=== PATIENT | male | born 2000 | race Two or more races ===

== ENCOUNTER 2024-08-26 21:16 | Emergency (ER) | payer MEDICAID, SELFPAY ==
[2024-08-26 22:40] VITALS: BP 106/60; PULSE 67; RESP 18; TEMP 36.9; O2SAT 100
--- NOTE | 2024-08-26 22:41 | EDNOTE_ITS ---
ED Skin Abcess FB-RME/HPI General Chief complaint: Skin/Abscess/Foreign Body Stated complaint: INSECT BITE TO LEFT LOWER LEG Time Seen by Provider: 08/26/24 22:03 Arrival date/time: 08/26/24 21:16 24 year old male present to emergency room with c/o of lower leg insect bite for 3 days. unsure of tetanus status LOCATION:leg SEVERITY: Symptoms are described as being severe with limitations on activities of daily living QUALITY: Symptoms are described as being dull or achy CONTEXT: The patient is unable to identify any inciting events. DURATION/TIMING: The symptoms started approximately one day ago and have been constant this then, and have been progressive getting worse. ASSOCIATED SYMPTOMS: The patient is unable to identify any other associated symptoms. MODIFYING FACTORS: The patient is unable to identify any alleviating or aggravating symptoms. PERTINENT ROS: denies IVDU, states no immunocompromising condition, denies any penetrating trauma, no fever, no unexplained nausea or vomiting, no headache, no chest pain REVIEW OF SYSTEMS: See History of Present Illness - with the exception of those mentioned in the history of present illness, all other systems reviewed and reported as negative GENERAL: In general the patient is awake, interactive, in an emergency department gurney. HEAD/EYES/EARS/NOSE/THROAT: normo-cephalic, atraumatic, mucus membranes are moist, anicteric, palpebral conjunctiva is pink, trachea is midline. BACK: normal range of motion without pain. NEUROLOGICAL: cranio-facial features are symmetric, moves all four extremities equally without obvious limitations or weakness. EXTREMITY: Left lower + localized infect insect bite. + TTP no red streaking or discharge no tenderness to palpation over the long bones or large joints of the bilateral upper extremities, no joint swelling, no joint erythema, and no peripheral edema. SKIN: warm, dry, well-perfused, no jaundice, no rash, no telangiectasias or petechia. PSYCH: calm, cooperative, no evidence of psychosis or agitation Related Data Previous Rx's ?Medication ?Instructions ?Recorded doxycycline hyclate 100 mg tablet 100 mg PO BID #20 ta bs 08/26/24 Allergies Allergy/AdvReac Type Severity Reaction Status Date / Time No Known Allergies Allergy Verified 08/26/24 21:18 Course Course Course Narrative: Patient is admitted to the Emergency Department and evaluated. Patient appears well, is non-toxic and well hydrated. Pt appears to have an early abscess that is indurated. Pt is given instructions to use warm compresses. Will initiate outpatient abx. Instructed to return in 2 days for recheck. Quality Measures none Orders Category Date Time Status Doxycycline [Vibramycin] Med 08/26/24 22:40 Once 100 mg PO X1 ONE Tetanus, Diphtheria Toxoids/Pf [Tenivac-Adult] Med 08/26/24 22:40 Once 0.5 ml IMI .ONCE ONE Vital Signs Vital signs: Vital Signs Temperature 98.5 F 08/26/24 22:40 Pulse Rate 67 08/26/24 22:40 Respiratory Rate 18 08/26/24 22:40 Blood Pressure 106/60 08/26/24 22:40 Pulse Oximetry (%) 100 08/26/24 22:40 Skin / Abscess / Foreign Body Patient data External records reviewed:: [facility] previous records Clinical information provided by:: patient Social determinants that could affect healthcare access:: none Patient has the following chronic illnesses:: n/a How is presenting disease/condition affected by chronic disease/condition?: no chronic disease Evaluation data The following diagnostics were reviewed and interpreted by me:: other (specify) (n/a) Lab and/or radiology exams considered but not ordered:: n/a Interpretation Summary: n/a Medications / Prescriptions Medications or Prescriptions considered but not ordered:: n/a Medication administrations:: Medication Administration History Doxycycline Hyclate (Doxycycline 100 Mg Tablet) 100 mg PO X1 ONE Stop: 08/26/24 22:41 Tetanus/Diphtheria Toxoids (Tetanus,Diphtheria Toxoids/Pf (Adult) 0.5 Ml Syringe) 0.5 ml IMi .ONCE ONE Stop: 08/26/24 22:41 as state above Consultations Consultation(s) initiated? (list below): No Diagnosis Skin/Abscess Differential Diagnosis: abscess of skin or subcutaneous tissue, cellulitis and insect bites Most likely diagnosis given after review of the tests above:: abscess lower leg Admission Indicated Admission indicated?: not indicated Admission Request Was there a request for admission?: No Disposition Plan Disposition Plan: Discharge Discharge Attestation Discharge Attestation: The patient and all family members were given an opportunity to ask questions and understood the discharge instructions. Discharge instructions specifically effects, indications for sooner follow up or return to the emergency department, and the expected course of current diagnosis. Patient condition: Stable Discharge Plan Plan Patient Disposition: HOME (Self Care) Health Concerns: Follow with PMD as directed Take tylenol or motrin as need Return to ED if sx worsen Prescriptions/Referrals Prescriptions/Med Rec: New doxycycline hyclate 100 mg tablet 100 mg PO BID Qty: 20 0RF Referrals: No Primary/Family,Physician [Primary Care Provider] - In 1 week Problem List Clinical Impression: Abscess Patient/Caregiver Discharge Instructions Education Materials: ED Abscess Antibiotic ... Print Language: Icelandic Stand Alone Forms: Anita Award Info., Patient Portal Info Letter
[2024-08-26] MEDS: DOXYCYCLINE 100 MG TABLET PO (23:02)
[2024-08-26] MEDS: TETANUS,DIPHTHERIA TOXOIDS/PF (ADULT) 0.5 ML SYRINGE IMi (23:02)
== END 2024-08-26 23:13 | disposition home or self-care (01) ==
PROVIDERS: Emergency Provider Emergency Medicine
DX: L02.416 Cutaneous abscess of left lower limb (principal)
CPT/HCPCS: 90471; 90714; 99282; A9270

== ENCOUNTER 2025-01-13 03:15 | Emergency (ER) | payer MEDICAID, SELFPAY ==
[2025-01-13 03:16] VITALS: BMI 19.1
[2025-01-13 03:28] VITALS: BP 126/75; PULSE 80; RESP 18; TEMP 36.9; O2SAT 98
[2025-01-13 04:09] LABS: Strep A Rapid Positive (Negative)
--- NOTE | 2025-01-13 04:21 | PD.EDDENTL ---
ED Dental RME/HPI General Chief complaint: Dental/Oral/Throat Stated complaint: SORE THROAT/ FEVER X 2DAYS Time Seen by Provider: 01/13/25 03:26 Arrival date/time: 01/13/25 03:15 This is a case of 25-year-old male with no medical history came into the emergency room due to sore throat for 2 days with subjective fever denies any cough nasal congestion ear pain denies any drooling of saliva patient is complaining of mild pain when swallowing persistence of the symptoms this patient decided to start consult here in the emergency room Limitations: no limitations Related Data Previous Rx's ?Medication ?Instructions ?Recorded doxycycline hyclate 100 mg tablet 100 mg PO BID #20 tabs 08/26/24 amoxicillin 875 mg-potassium 1 tab PO BID #20 tabs 01/13/25 clavulanate 125 mg tablet ibuprofen 800 mg tablet 800 mg PO Q8H PRN pain #20 tabs 01/13/25 lidocaine HCl 2 % mucosal solution 10 ml PO Q4HR PRN sore throat #100 01/13/25 (Lidocaine Viscous) mL prednisone 20 mg tablet See Taper PO QDAY 5 days #5 tabs 01/13/25 Allergies Allergy/AdvReac Type Severity Reaction Status Date / Time No Known Allergies Allergy Verified 08/26/24 21:18 Review of Systems Review of Systems Systems Reviewed: All systems reviewed, normal except as documented Constitutional Constitutional: Reports system reviewed and no additional complaints, except as documented and Reports as per HPI Cardiovascular Cardiovascular: Reports system reviewed and no additional complaints, except as documented and Reports as per HPI Respiratory Respiratory: Reports system reviewed and no additional complaints, except as documented and Reports as per HPI Gastrointestinal Gastrointestinal: Reports system reviewed and no additional complaints, except as documented and Reports as per HPI Neurologic Neurologic: Reports system reviewed and no additional complaints, except as documented and Reports as per HPI Past Medical History Social History SMOKING STATUS: Current some day smoker ED Exam General Limitations: Present no limitations General appearance: Present alert, in no apparent distress and other (Is awake alert oriented not in distress nontoxic looking well-hydrated well-nourished) Head Head exam: Present atraumatic, normocephalic and normal inspection Eye Eye exam: Present normal appearance, PERRL and EOMI ENT ENT exam: Present normal exam, normal oropharynx, mucous membranes moist and other (Nose and ear exam is normal pharynx were red bilateral tonsils were red retracted with exudate no drooling of saliva patient can speak full sentences no muffled voice no hot potato voice no peritonsillar abscess no Jake's angina) Neck Neck exam: Present normal inspection, full ROM, trachea midline and other; Absent tenderness, meningismus, lymphadenopathy or thyromegaly Chest Chest inspection: Present normal inspection and symmetric chest wall rise; Absent tenderness Respiratory Respiratory exam: Present normal lung sounds bilaterally; Absent respiratory distress, wheezes, stridor, accessory muscle use or prolonged expiratory phase Cardiovascular Cardiovascular exam: Present regular rate, normal rhythm and normal heart sounds; Absent bradycardia, tachycardia, irregular rhythm, systolic murmur or diastolic murmur Abdominal Exam Abdominal exam: Present soft and normal bowel sounds Extremities Exam Extremities exam: Present normal inspection and full ROM Back Exam Back exam: Present normal inspection and full ROM Neurological Exam Neurological exam: Present alert, oriented X3, CN II-XII intact, normal gait and reflexes normal; Absent motor sensory deficit Psychiatric Psychiatric exam: Present normal affect and normal mood Skin Skin exam: Present warm, dry, intact and normal color Course Quality Measures none Orders Category Date Time Status Strep A Rapid Stat Lab 01/13/25 03:32 Completed Dexamethasone Inj [Decadron Inj] 10 mg Med 01/13/25 04:16 Ordered Sodium Chloride 0.9% [Ns] 50 ml IV X1 Ketorolac Inj [Toradol Inj] Med 01/13/25 04:16 Once 30 mg IVP X1 ONE Lidocaine 2% Viscous [Xylocaine 2% Viscous] Med 01/13/25 04:16 Once 15 ml PO X1 ONE Sodium Chloride 0.9% 1000 ml [Ns] 1,000 ml Med 01/13/25 04:16 Ordered IV 999 mls/hr cefTRIAXone/D5w 1gm IV premix [Rocephin/D5w 1gm IV Med 01/13/25 04:17 Ordered premix] 1 gm in 50 ml IV X1 Vital Signs Vital signs: Vital Signs Temperature 98.4 F 01/13/25 03:28 Pulse Rate 80 01/13/25 03:28 Respiratory Rate 18 01/13/25 03:28 Blood Pressure 126/75 01/13/25 03:28 Pulse Oximetry (%) 98 01/13/25 03:28 Oxygen Delivery Method Room Air 01/13/25 03:28 Oxygen saturation is 98% in room air Dental / Oral MDM Narrative MDM Narrative:: This is a case of 25-year-old male with no medical history came into the emergency room due to sore throat for 2 days with subjective fever denies any cough nasal congestion ear pain denies any drooling of saliva patient is complaining of mild pain when swallowing persistence of the symptoms this patient decided to start consult here in the emergency room physical examination patient is awake alert oriented not in distress nontoxic looking well-hydrated well-nourished no signs and symptoms of sepsis no signs and symptoms of dehydration lung sounds clear no crackles no rales no retraction no stridor HEENT exam showed nose and ear exam were normal bilateral tonsils were red swollen with exudate pharynx were red no peritonsillar abscess Centor criteria is 1/4 no drooling of saliva no muffled voice no hot potato voice the rest of the physical examination neurological exam is normal patient rapid strep were positive a bolus of normal saline was given Toradol for pain lidocaine viscous for sore throat and was also given dexamethasone and ceftriaxone for strep throat patient was discharged with Augmentin for strep throat prednisone to be started tomorrow and ibuprofen and lidocaine viscous for sore throat follow-up with PCP in 2 days for reevaluation and return precaution in the ER was advised Patient was discharged with comfortable condition walking with stable gait. Patient verbalized no further complains explained diagnosis and answered patient question. Patient is comfortable with the proposed management plan including the need to follow up with his/her primary care physician and any specialist if applicable Discussed patient for any urgent condition or worsening sx, He/She needed to go to emergency room immediately or call 911. Patient acknowledge the responsibility to follow up as instructed and to monitor her/his symptoms. For any persistence of the symptoms for more than 3-5 days return precaution advised. Discussed the result of the test and was given printed discharge instruction Patient data External records reviewed:: [facility] previous records Clinical information provided by:: patient Social determinants that could affect healthcare access:: none Patient has the following chronic illnesses:: None How is presenting disease/condition affected by chronic disease/condition?: no chronic disease Evaluation data The following diagnostics were reviewed and interpreted by me:: lab results Lab and/or radiology exams considered but not ordered:: Reviewed Interpretation Summary: Reviewed Medications / Prescriptions Medications or Prescriptions considered but not ordered:: Given Medication administrations:: Medication Administration History Sodium Chloride (Ns) 1,000 mls @ 999 mls/hr IV .Q1H1M ONE Stop: 01/13/25 05:16 Dexamethasone Sodium Phosphate (10 mg/ Sodium Chloride) 51 mls @ 102 mls/hr IV X1 ONE Stop: 01/13/25 04:17 Ceftriaxone Sodium/Dextrose (Rocephin/D5w 1gm Iv Premix) 1 gm in 50 mls @ 100 mls/hr IV X1 ONE Stop: 01/13/25 04:46 Ketorolac Tromethamine (Ketorolac Inj 30 Mg/Ml Vial) 30 mg IVP X1 ONE Stop: 01/13/25 04:17 Lidocaine HCl (Lidocaine Viscous 2% 15 Ml Udc) 15 ml PO X1 ONE Stop: 01/13/25 04:17 Given Consultations Consultation(s) initiated? (list below): No Diagnosis Dental Differential Diagnosis: other (Strep throat) Most likely diagnosis given after review of the tests above:: Strep throat Admission Indicated Admission indicated?: not indicated Explain why admission is indicated or not indicated:: Not indicated Admission Request Was there a request for admission?: No Admission Attestation Admission request attestation: Not indicated Disposition Plan Disposition Plan: Discharge Discharge Attestation Discharge Attestation: The patient and all family members were given an opportunity to ask questions and understood the discharge instructions. Discharge instructions specifically effects, indications for sooner follow up or return to the emergency department, and the expected course of current diagnosis. Patient condition: Stable Discharge Plan Plan Patient Disposition: HOME (Self Care) Patient condition on transfer: Stable Prescriptions/Referrals Prescriptions/Med Rec: New amoxicillin-pot clavulanate 875-125 mg tablet 1 tab PO BID Qty: 20 0RF ibuprofen 800 mg tablet 800 mg PO Q8H PRN (Reason: pain) Qty: 20 0RF prednisone 20 mg tablet See Taper PO QDAY 5 Days Qty: 5 0RF Taper: Prednisone Taper 20 mg DAILY for 2 Days and 0 Hour 10 mg DAILY for 2 Days and 0 Hour 5 mg DAILY for 7 Days and 0 Hour lidocaine HCl [Lidocaine Viscous] 2 % solution 10 ml PO Q4HR PRN (Reason: sore throat) Qty: 100 0RF No Action doxycycline hyclate 100 mg tablet 100 mg PO BID Qty: 20 0RF Referrals: Diogo Russell MD [Primary Care Provider, Family Practice] - In 1 week Problem List Clinical Impression: Strep tonsillitis Patient/Caregiver Discharge Instructions Education Materials: ED Pharyngitis, Strep (Confirmed) Additional Instructions: Follow-up with your primary care physician in 2 days for reevaluation recurrence persistent worsening symptoms or any emergent concern call 911 or go to the nearest emergency room increase water intake keep hydrated spatulate Gatorade for hydration warm saline gargle is advised finish the course of antibiotic Print Language: Tuvaluan Stand Alone Forms: Anita Award Info., Patient Portal Info Letter PA/DIRECTOR GAME Supervising Physician PA/DIRECTOR GAME Supervising Physician: Dr. Madrigal
[2025-01-13] MEDS: LIDOCAINE VISCOUS 2% 15 ML UDC PO (04:30)
[2025-01-13] MEDS: SODIUM CHLORIDE 0.9% 1000 ML 1,000 ML 999 ML IV (04:30)
[2025-01-13] MEDS: KETOROLAC INJ 30 MG/ML VIAL IVP (04:30)
[2025-01-13] MEDS: cefTRIAXone/D5w 1gm IV premix 1 GM/50 ML BAG IV (04:31)
[2025-01-13] MEDS: DEXAMETHASONE INJ 10 MG in SODIUM CHLORIDE 0.9% 50 ML 102 MG IV (05:02)
== END 2025-01-13 05:52 | disposition home or self-care (01) ==
PROVIDERS: Nurse Practitioner Family; Emergency Provider Emergency Medicine; PCP Family Medicine
DX: J03.00 Acute streptococcal tonsillitis, unspecified (principal); J02.9 Acute pharyngitis, unspecified
CPT/HCPCS: 87651; 96365; 96375; 99283; J0696; J1100; J1885; J3490; J7030